=== PATIENT | female | born 1990 | race Asian ===

== ENCOUNTER 2022-09-21 05:38 | Emergency (ER) | payer BC ==
[~2022-09-21] VITALS: Ht 160 cm; Wt 49.9 kg
--- NOTE | 2022-09-21 06:00 | NUR ---
Pt is noted alert, responsive as she came in C/O SOB [id number], Dizziness and Nausea . Pt care continue as awaits MD orders.
[2022-09-21 06:22] LABS: HEMATOCRIT 39.3 % (31.2-41.9); MEAN CORPUSCULAR HEMOGLOBIN 30.8 uug (24.7-32.8); MEAN CORPUSCULAR VOLUME 90.9 fL (75.5-95.3); PLATELET COUNT (AUTO) 236 K/uL (179-408)
[2022-09-21 06:29] LABS: CARBON DIOXIDE 26 mmol/L (21-32); CHLORIDE 104 mmol/L (98-107); CREATININE 0.8 mg/dL (0.6-1.3); GLUCOSE 100 mg/dL (74-106); POTASSIUM 3.1 mmol/L (3.5-5.1); UREA NITROGEN, BLOOD 13 mg/dL (7-18)
[2022-09-21] MEDS ORDERED: LORAZEPAM 0.5 MG TABLET PO ONE (06:30)
[2022-09-21] MEDS ORDERED: LORAZEPAM 0.5 MG TABLET ONE (06:35)
--- NOTE | 2022-09-21 06:41 | NUR ---
Pt care continue as she refused Ativan 0.5mg PO and MD is made aware.
--- NOTE | 2022-09-21 07:08 | NUR ---
Pt in stable condition. Pt not experiencing any S&S of distress nor anxiety. Safety measures in place. Will continue to monitor.
[2022-09-21 07:29] VITALS: BP 119/75
--- NOTE | 2022-09-21 07:29 | NUR ---
Patient discharged to home in stable condition. Written and verbal after care instructions given. Patient verbalizes understanding of instructions. Stressed follow up or return to ER for worsening s/s.
== END 2022-09-21 07:30 | disposition home or self-care (01) ==
LOC: ER 05:47
DX: F41.9 Anxiety disorder, unspecified (principal); R07.89 Other chest pain; R10.2 Pelvic and perineal pain
CPT/HCPCS: 36415; 71045; 84484; 85025; 93005; A4663